=== PATIENT | female | born 1960 | race Caucasian/White ===

== ENCOUNTER → 2018-04-25 | Outpatient (CLI) | payer OTHER ==
[~2018-04-25] MED LIST: ACETAMINOPHEN-1 EAC1 PO; AUGMENTIN 875875 M1 PO; CARISOPRODOL; COVARYX H.S. T1 EACH; CYMBALTA; LEVOTHROID; LISINOPRIL; LYRICA; METFORMIN; MOBIC; OMEPRAZOLE; ONGLYZA2.5 MG; PREMARIN1.25 MG; SYMBICORT160 MCG/4.; VICTOZA0.6 MG/0.1
[2018-04-25 07:23] LABS: POTASSIUM 3.6 mmol/L (3.5-5.1)
== END ==
LOC: M.LAB 04:28
PROVIDERS: Student in an Organized Health Care Education/Training Program
DX: Z01.812 Encounter for preprocedural laboratory examination (principal); E11.9 Type 2 diabetes mellitus without complications; I10 Essential (primary) hypertension; E03.9 Hypothyroidism, unspecified; K21.9 Gastro-esophageal reflux disease without esophagitis

== ENCOUNTER 2018-10-30 14:36 | Emergency (ER) | payer OTHER ==
[~2018-10-30] VITALS: Ht 170.2 cm; Wt 96.6 kg
[2018-10-30] MEDS ORDERED: PIOGLITAZONE15 MG (15:36)
[2018-10-30 15:37] LABS: ABSOLUTE BASOPHILS 0.1 thou/uL (0.0-0.2); ABSOLUTE EOSINOPHILS 0.2 thou/uL (0.0-0.7); ABSOLUTE LYMPHOCYTES 2.2 thou/uL (0.8-5.3); ABSOLUTE MONOCYTES 0.7 thou/uL (0.0-1.2); ABSOLUTE NEUTROPHILS 7.8 thou/uL (1.6-8.1); BASOPHILS 1.2 %; EOSINOPHILS 1.9 %; HEMATOCRIT 39.2 % (37.0-47.0); HEMOGLOBIN 12.4 gm/dL (12.0-15.0); LYMPHOCYTES 19.8 %; MCH 23.7 pg (26.0-34.0); MCHC 31.6 g/dL (28.0-37.0); MCV 75.1 fL (80.0-100.0); MONOCYTES 6.6 %; MPV 7.9 fl. (7.2-11.1); NUCLEATED RBCS 0 /100WBC; PLATELET COUNT* 371 thou/uL (150-400); POLYS 70.5 %; RBC 5.22 mil/uL (4.20-5.00); RDW-CV 16.3 % (10.5-14.5); WBC 11.1 thou/uL (4.0-11.0)
[2018-10-30] MEDS ORDERED: ALORA1 EAC1 TRANSDERM (15:37)
[2018-10-30] MEDS ORDERED: AMARYL2 MG PO (15:37)
[2018-10-30 15:52] LABS: ALBUMIN 3.7 g/dL (3.4-5.0); CALCIUM 9.7 mg/dL (8.5-10.1); CREATININE 0.8 mg/dL (0.6-1.3); TOTAL BILIRUBIN 0.3 mg/dL (<0.1-1.0); TOTAL PROTEIN 7.6 g/dL (6.4-8.2)
[2018-10-30] MEDS ORDERED: KEFLEX500 M1 PO (16:13)
[2018-10-30] MEDS ORDERED: DOXYCYCLINE 10100 MG PO (16:13)
[2018-10-30] MEDS ORDERED: MEDROLDOSEPACK PO (16:13)
[2018-10-30 16:53] VITALS: BP 103/70
== END 2018-10-30 16:54 | disposition home or self-care (01) ==
LOC: M.ERS 14:36
PROVIDERS: Nurse Practitioner Family
DX: M70.32 Other bursitis of elbow, left elbow (principal); I10 Essential (primary) hypertension; K21.9 Gastro-esophageal reflux disease without esophagitis; J45.909 Unspecified asthma, uncomplicated; E03.9 Hypothyroidism, unspecified; M79.7 Fibromyalgia; E11.43 Type 2 diabetes mellitus with diabetic autonomic (poly)neuropathy; M54.5 Low back pain; G89.29 Other chronic pain; Z98.890 Other specified postprocedural states; Z91.048 Other nonmedicinal substance allergy status; Z90.710 Acquired absence of both cervix and uterus; Z88.4 Allergy status to anesthetic agent; Z88.8 Allergy status to other drugs, medicaments and biological substances; Z88.2 Allergy status to sulfonamides; Y93.89 Activity, other specified

== ENCOUNTER → 2021-06-22 | Outpatient (CLI) | payer OTHER ==
[~2021-06-22] MED LIST changes: +ALORA1 EAC1 TRANSDERM; +AMARYL2 MG PO; +DOXYCYCLINE 10100 MG PO; +KEFLEX500 M1 PO; +MEDROLDOSEPACK PO; +PIOGLITAZONE15 MG
== END ==
LOC: M.LAB 16:09
PROVIDERS: ATTEND Podiatrist Foot Surgery
DX: Z01.812 Encounter for preprocedural laboratory examination (principal); Z20.822 Contact with and (suspected) exposure to COVID-19